=== PATIENT | male | born 1985 | race Caucasian/White ===

== ENCOUNTER 2019-05-31 18:33 | Emergency (ER) | payer MEDICARE ==
[~2019-05-31] VITALS: Ht 180.3 cm; Wt 77.3 kg
[~2019-05-31 18:33] MED LIST: DIPH-423 PO; IBUP-1986 PO; LORA2TAB96 PO
[2019-05-31] MEDS ORDERED: ibuprofen tablet 400 MG TABLET PO ONE (20:35)
[2019-05-31] MEDS ORDERED: ibuprofen 200mg tablet PO ONE (20:40)
[2019-05-31 21:26] LABS: BASOPHILS # (AUTO) 0.1 X10'3 (0-0.2); BASOPHILS % (AUTO) 0.9 % (0-1); EOSINOPHILS # (AUTO) 0.1 X10'3 (0-0.9); EOSINOPHILS % (AUTO) 0.9 % (0-6); HEMATOCRIT 41.6 % (42.0-52.0); HEMOGLOBIN 14.3 g/dl (14.0-17.9); LYMPHOCYTES # (AUTO) 2.7 X10'3 (1.1-4.8); MEAN CORPUSCULAR HEMOGLOBIN 33.3 PG (27.0-31.0); MEAN CORPUSCULAR HGB CONC 34.3 g/dL (33.0-36.5); MEAN CORPUSCULAR VOLUME 97.1 FL (78-98); MEAN PLATELET VOLUME 9.5 FL (7.4-10.4); MONOCYTES # (AUTO) 1.3 X10'3 (0-0.9); MONOCYTES % (AUTO) 13.2 % (2-12); NEUTROPHILS # (AUTO) 5.9 X10'3 (1.8-7.7); PLATELET COUNT 234 X10'3 (140-440); RED BLOOD COUNT 4.28 X10'6 (4.70-6.10); WHITE BLOOD COUNT 10.1 X10'3 (4.5-11.0)
[2019-05-31 21:31] LABS: CLARITY,URINE CLOUDY (Clear); COLOR,URINE YELLOW (Yellow); GLUCOSE, URINE NEGATIVE (Neg); KETONES,URINE 15 mg/dl (Neg); LEUKOCYTE ESTERASE ,URINE NEGATIVE (Neg); NITRITES, URINE NEGATIVE (Neg); OCCULT BLOOD,URINE NEGATIVE (Neg); PROTEIN,URINE NEGATIVE (Neg); UROBILINOGEN,URINE 0.2 E.U/dL (0.2-1.0)
[2019-05-31 21:35] LABS: UA COLLECTION TYPE CLN CATCH MIDSTREAM
[2019-05-31 21:36] LABS: SQUAMOUS EPITHELIAL CELL,UR FEW /LPF (FEW)
[2019-05-31 21:37] LABS: MUCUS STRANDS MODERATE /LPF (Neg)
[2019-05-31 21:38] LABS: AMORPHOUS URATES 3+; BACTERIA,URINE FEW /HPF (Neg); RBC,URINE NONE SEEN /HPF (0-2)
[2019-05-31 21:39] LABS: ALANINE AMINOTRANSFERASE 40 U/L (12-78); ALBUMIN 4.1 G/DL (3.4-5.0); ALBUMIN/GLOBULIN RATIO 1.4 (1.1-1.5); ALKALINE PHOSPHATASE 66 IU/L (46-116); ANION GAP 10 (8-16); ASPARTATE AMINO TRANSFERASE 52 U/L (10-37); BILIRUBIN,TOTAL 0.8 MG/DL (0.1-1.0); BLOOD UREA NITROGEN 17 MG/DL (7-18); BUN/CREATININE RATIO 20.2 (5.4-32.0); CALCIUM 9.2 MG/DL (8.5-10.1); CHLORIDE 104 MMOL/L (99-107); CREATININE 0.84 MG/DL (0.60-1.10); GLUCOSE 105 MG/DL (70-104); POTASSIUM 3.7 MMOL/L (3.5-5.1); SODIUM 140 MMOL/L (135-145); TOTAL CARBON DIOXIDE 26.3 MMOL/L (24-32); TOTAL PROTEIN 7.1 G/DL (6.4-8.2); eGFR > 90 ML/MIN
[2019-05-31 21:43] LABS: URINE AMPHETAMINE SCREEN NEGATIVE (Neg); URINE BARBITUATE SCREEN NEGATIVE (Neg); URINE BENZODIAZEPINES SCREEN NEGATIVE (Neg); URINE CANNABINOID SCREEN POSITIVE (Neg); URINE COCAINE SCREEN NEGATIVE (Neg); URINE METHADONE SCREEN NEGATIVE (Neg); URINE OPIATE SCREEN NEGATIVE (Neg); URINE PHENCYCLIDINE SCREEN NEGATIVE (Neg)
[2019-05-31 21:52] LABS: ETHANOL < 0.010 GM/DL (0.0-0.010)
--- NOTE | 2019-05-31 23:01 | NUR ---
The patient was moved to bed 25 from [facility]. He presented with complaints of neck pain and then stated that he had tried to kill himself in the last 24 hours by wrapping a shirt around his neck. The patient is not on any medications at home and stated he doesn't want to take medications but uses THC daily. He appeared hypervigilant and disorganized. He appeared distracted by internal stimuli but denies hearing voices. He stated that he has an older female roommate and they had a disagreement and he had yelled at her and he felt bad about that when he tried to harm himself. He has been very cooperative with staff. He refuses any offer of medications to help him sleep.
--- NOTE | 2019-05-31 23:02 | NUR ---
Pt packet faxed to [facility].
--- NOTE | 2019-06-01 00:27 | NUR ---
The patient is resting on his bed but awake.
[2019-06-01] MEDS ORDERED: hydrOXYzine 25 MG tablet PO ONE (02:00)
--- NOTE | 2019-06-01 02:04 | NUR ---
The patient is resting on his bed and unable to sleep. States he is willing to try medication to sleep. Dr. Treviño made aware and orders received.
--- NOTE | 2019-06-01 04:51 | NUR ---
The patient appears to be asleep
--- NOTE | 2019-06-01 06:30 | NUR ---
Pt is lying in bed, flat affect, sounds paranoid and suspicous. Pt verbalized michael "I don't trust nobody here". RN advised pt to check his agitation.
[2019-06-01] MEDS ORDERED: LORazepam 2 mg/ml vial IM ONE (07:45)
[2019-06-01] MEDS ORDERED: diphenhydrAMINE 50 mg/ml inj IM ONE (07:45)
[2019-06-01] MEDS ORDERED: haloperidol lactate 5mg/ml inj IM ONE (07:45)
--- NOTE | 2019-06-01 08:15 | NUR ---
Pt was instructed to stop hostile behaviors towards staff, he was noncompliant. Pt was aggressive towards staff, gesturing and disregarded personal space. RN administered a round of B52, pt tolerated injections well. RN went over behaviroal expectations with patient, he agreed to check his aggression.
--- NOTE | 2019-06-01 09:21 | NUR ---
At 0900, I received orders from the charge nurse to come to overflow to observe bed 25. Report was given to myself from morning pct. I was advised that patient tryed to end his life within the last week via tshirt. I will continue to chart on this pt throughout the day via q15 sheet provided to myself. At this time, I have also reviewed the notes left by other staff members.
--- NOTE | 2019-06-01 09:30 | NUR ---
Pt was asleep, no sign of distress. BLL, rails up.
--- NOTE | 2019-06-01 11:00 | NUR ---
Pt was asleep, no sign of distress. BLL, rails up.
--- NOTE | 2019-06-01 13:30 | NUR ---
Pt is very drowsy, difficult to rouse. RN woke up pt, encouraged him to have some lunch, and get ready to talk to the Go from the [facility]
--- NOTE | 2019-06-01 15:41 | NUR ---
PT SLEEPING IN POC, NO CHANGE.
--- NOTE | 2019-06-01 17:53 | NUR ---
Pt continues to appear drowsy, 1799 expires at 2040, needs to be renewed by [facility] provider.
--- NOTE | 2019-06-01 19:15 | NUR ---
Charge nurse made aware of patients 1798 expiring at 2039
[2019-06-01] MEDS ORDERED: acetaminophen 325mg tablet PO PRN (23:55)
[2019-06-02 06:03] VITALS: BP 120/75
== END 2019-06-02 10:11 | disposition home or self-care (01) ==
LOC: ER 18:34
DX: S10.91XA Abrasion of unspecified part of neck, initial encounter (principal); R45.851 Suicidal ideations; F32.9 Major depressive disorder, single episode, unspecified; Z79.899 Other long term (current) drug therapy; Z79.1 Long term (current) use of non-steroidal anti-inflammatories (NSAID); Z88.8 Allergy status to other drugs, medicaments and biological substances; Z59.0 Homelessness; Y04.0XXA Assault by unarmed brawl or fight, initial encounter; Y93.89 Activity, other specified; Y92.59 Other trade areas as the place of occurrence of the external cause; Y99.8 Other external cause status
CPT/HCPCS: 36415; 80053; 80305; 80320; 81001; 84443; 85025; 96372; 99284; J1200; J1630; J2060; Z7610